=== PATIENT | male | born 1950 | race Caucasian/White ===

== ENCOUNTER 2018-06-28 12:45 | Observation (INO) | payer OTHER ==
[2018-06-28] MEDS ORDERED: NA CHLORIDE 0.9% 1,000 ML ONE (13:51)
[2018-06-28 14:33] LABS: Absolute Lymphocytes (CBC) 2.3 K/uL (0.7-4.9); Absolute Monocytes 1.1 K/uL (0.1-1.3); Absolute Neutrophil 5.7 K/uL (1.8-8.0); Eosinophils % 1.5 % (0-4.4); Hematocrit 48.1 % (39.6-49.0); Lymphocytes % 24.1 % (15.3-44.8); MCV 97.5 fL (80-100); MPV 10.3 fL (7.6-11.3); Monocytes % 12.1 % (3.3-12.3); RBC Red Blood Cell Count 4.93 M/uL (4.33-5.43)
[2018-06-28 14:45] LABS: Albumin 3.2 g/dL (3.4-5.0); Bilirubin Direct 0.2 mg/dL (0-0.2); Bilirubin Total 0.8 mg/dL (0.2-1.0); Protein, Total 6.3 g/dL (6.4-8.2)
--- NOTE | 2018-06-28 14:57 | RAD REPORT ---
EXAM DESCRIPTION: RAD - Chest Single View - 06/28/2018 2:41 pm CLINICAL HISTORY: Cough, abdominal distension COMPARISON: None. TECHNIQUE: AP portable chest image was obtained 1434 hours . FINDINGS: Lung volumes are low but otherwise clear of a focal process. Interstitial markings are mil dly prominent suspected to be baseline. Heart and vasculature are normal. No measurable pleural effus ion and no pneumothorax. No acute bony abnormality seen. No acute aortic findings suspected. IMPRESSION: Prominence of the interstitial markings favored to be baseline rather than interstitial edema or infiltrate. No mass, consolidation or failure finding.
--- NOTE | 2018-06-28 15:55 | RAD REPORT ---
EXAM DESCRIPTION: CT - Abdomen Pelvis W Contrast - 06/28/2018 3:31 pm CLINICAL HISTORY: Abdominal pain. Abdominal distention COMPARISON: None. TECHNIQUE: Computed axial tomography of the abdomen and pelvis was obtained. 100 cc Isovue-300 is ad ministered intravenously. Oral contrast was given. All CT scans are performed using dose optimization technique as appropriate and may include automated exposure control or mA/KV adjustment according to patient size. FINDINGS: The liver, spleen, pancreas, adrenals and right kidney appear unremarkable. 2.7 centimeter left renal cyst is seen Small bilateral hernias contain fat Small to moderate amount of ascites is present. Soft tissue nodules are present within the omentum. T he wall of a loop of small bowel within the anterior right abdomen is markedly thickened. Spondylolysis involves L5 IMPRESSION: Soft tissue nodules within the omentum suspicious for carcinomatosis. Small to moderate amount ascites is seen. Marked thickening of the wall of a loop of small bowel within the anterior right abdomen may indicate neoplasm
--- NOTE | 2018-06-28 16:37 | EDPHYS ---
Physician Documentation [facility] Name: Derek Yan Age: 68 yrs Sex: Male : 1950 Arrival Date: 06/28/2018 Time: 12:50 Bed 17 Private MD: Newton Iraehta T ED Physician Thierno Wilson HPI: 06/28 13:35 This 68 yrs old Male presents to ER via Ambulatory with complaints of bowel cp problem. 13:35 The patient presents with abdominal distention that is diffuse. cp 13:35 Onset: The symptoms/episode began/occurred 3 day(s) ago. cp 13:35 The symptoms do not radiate. Associated signs and symptoms: Pertinent positives: cp constipation, Pertinent negatives: anorexia, chest pain, diarrhea, dysuria, fever, palpitations, testicular pain, vomiting. The symptoms are described as dull. Historical: - Allergies: 13:16 No Known Allergies; aj1 - Home Meds: 13:16 Lisinopril Oral [Active]; Simvastatin Oral [Active]; Aspirin Oral [Active]; Claritin aj1 Oral [Active]; - PMHx: 13:16 Hypertension; Hyperlipidemia; aj1 - PSHx: 13:16 Hernia repair; aj1 - Immunization history:: Flu vaccine is not up to date. - Social history:: Smoking status: Patient/guardian denies using tobacco. - Ebola Screening: : Patient denies travel to an Ebola-affected area in the 21 days before illness onset. ROS: 13:40 Constitutional: Negative for body aches, chills, fever, poor PO intake. cp 13:40 Eyes: Negative for injury, pain, redness, and discharge. cp 13:40 ENT: Negative for drainage from ear(s), ear pain, sore throat, difficulty swallowing, cp difficulty handling secretions. 13:40 Cardiovascular: Negative for chest pain, edema, palpitations. 13:40 Respiratory: Negative for cough, shortness of breath, wheezing. 13:40 Abdomen/GI: Positive for constipation, abdominal distension, Negative for vomiting, diarrhea, black/tarry stool, rectal bleeding. 13:40 Back: Negative for radiated pain. 13:40 : Negative for urinary symptoms, testicular pain 13:40 Skin: Negative for cellulitis, rash. 13:40 Neuro: Negative for altered mental status, headache, syncope, near syncope, weakness. 13:40 All other systems are negative. Exam: 13:45 Constitutional: The patient appears in no acute distress, alert, awake, cp non-diaphoretic, non-toxic, well developed, well nourished, uncomfortable. 13:45 Head/Face: Normocephalic, atraumatic. cp 13:45 Eyes: Pupils equal round and reactive to light, extra-ocular motions intact. Lids and cp lashes normal. Conjunctiva and sclera are non-icteric and not injected. Cornea within normal limits. Periorbital areas with no swelling, redness, or edema. ENT: Nares patent. No nasal discharge, no septal abnormalities noted. Tympanic membranes are normal and external auditory canals are clear. Oropharynx with no redness, swelling, or masses, exudates, or evidence of obstruction, uvula midline. Mucous membranes moist. Chest/axilla: Normal chest wall appearance and motion. Nontender with no deformity. No lesions are appreciated. 13:45 Cardiovascular: Rate: normal, Rhythm: regular, Edema: is not appreciated, JVD: is not appreciated. 13:45 Respiratory: the patient does not display signs of respiratory distress, Respirations: normal, no use of accessory muscles, no retractions, no splinting, no tachypnea, labored breathing, is not present, Breath sounds: are clear throughout, no decreased breath sounds, no stridor, no wheezing. 13:45 Abdomen/GI: Inspection: distension, that is moderate, in the abdomen diffusely, Bowel cp sounds: active, all quadrants, Palpation: abdomen is soft and non-tender, in all quadrants, rebound tenderness, is not appreciated, voluntary guarding, is not appreciated, involuntary guarding, is not appreciated. 13:45 Back: CVA tenderness, is absent. 13:45 Skin: cellulitis, is not appreciated, no rash present. 13:45 Neuro: Orientation: to person, place \T\ time. Mentation: lucid, able to follow commands, Cerebellar function: is grossly normal, Motor: moves all fours, strength is normal, Sensation: no obvious gross deficits, Gait: is steady. Vital Signs: 13:16 BP 125 / 85; Pulse 92; Resp 18; Temp 97.8; Pulse Ox 97% on R/A; Weight 94.8 kg (R); aj1 Height 5 ft. 9 in. (175.26 cm) (R); Pain 0/10; 14:46 BP 134 / 78; Pulse 81; Resp 14; Temp 98.6; Pulse Ox 99% on R/A; Pain 2/10; ch 16:04 BP 120 / 66; Pulse 88; Resp 16; Pulse Ox 96% on R/A; Pain 0/10; em 17:00 BP 134 / 75; Pulse 92; Resp 18; Pulse Ox 97% on R/A; Pain 0/10; em 13:16 Body Mass Index 30.86 (94.80 kg, 175.26 cm) aj1 14:46 pt states it is not pain, more pressure ch MDM: 13:19 Patient medically screened. cp 14:00 Differential diagnosis: bowel obstruction, pancreatitis, ascites, liver failure, bowel cp carcinoma. 16:15 Data reviewed: vital signs, nurses notes, lab test result(s), radiologic studies, CT cp scan, plain films. 16:15 Test interpretation: by ED physician or midlevel provider: plain radiologic studies. 16:25 Physician consultation: Tomás Haywood MD was contacted at 16:25, regarding admission, to the medical/surgical unit. patient's condition. 06/28 13:30 Order name: Basic Metabolic Panel; Complete Time: 14:46 06/28 14:46 Interpretation: Normal except: NA 134; GLUC 72; BUN 25; GFR 75. 06/28 13:30 Order name: CBC with Diff; Complete Time: 14:46 06/28 16:10 Interpretation: Reviewed. 06/28 13:30 Order name: Creatinine for Radiology; Complete Time: 14:46 06/28 13:30 Order name: Hepatic Function; Complete Time: 14:46 06/28 14:47 Interpretation: Normal except: AST 54; TP 6.3; ALB 3.2; A/G 1.0. 06/28 13:30 Order name: Lipase; Complete Time: 14:46 06/28 16:45 Order name: CBC with Automated Diff EDMS 06/28 16:45 Order name: CBC with Automated Diff EDMS 06/28 16:45 Order name: CBC with Automated Diff EDMS 06/28 16:45 Order name: CBC with Automated Diff EDMS 06/28 16:45 Order name: Comprehensive Metabolic Panel EDMS 06/28 16:45 Order name: Comprehensive Metabolic Panel [facility] 06/28 16:45 Order name: Comprehensive Metabolic Panel [facility] 06/28 16:45 Order name: Comprehensive Metabolic Panel [facility] 06/28 16:45 Order name: Magnesium [facility] 06/28 13:30 Order name: IV Saline Lock; Complete Time: 14:25 06/28 13:30 Order name: Labs collected and sent; Complete Time: 14:25 06/28 13:30 Order name: Urine Dipstick-Ancillary (obtain specimen); Complete Time: 17:43 06/28 13:30 Order name: XRAY Chest (1 view); Complete Time: 16:08 06/28 13:30 Order name: CT Abd/Pelvis - W/Contrast: give oral contrast; Complete Time: 16:08 06/28 16:45 Order name: NPO [facility] 06/28 16:45 Order name: Magnesium [facility] 06/28 16:45 Order name: Phosphorus [facility] 06/28 16:45 Order name: Phosphorus [facility] 06/28 17:37 Order name: Urine Dipstick--Ancillary (enter results) em1 Administered Medications: 14:24 Drug: NS 0.9% 500 ml Route: IV; Rate: bolus; Site: right forearm; em 14:51 Follow up: IV Status: Completed infusion; IV Intake: 500ml 14:24 Drug: NS 0.9% 1000 ml Route: IV; Rate: 100 ml/hr; Site: right forearm; em 17:45 Follow up: IV Status: Infusion continued upon admission; IV Intake: 200ml em Disposition: 06/28/18 16:36 Hospitalization ordered by Tomás Haywood for Observation. Preliminary diagnosis is Ascites. - Bed requested for Telemetry/MedSurg (observation). - Status is Observation. em - Condition is Stable. - Problem is new. - Symptoms are unchanged. UTI on Admission? No Addendum: 07/01/2018 07:47 Co-signature as Attending Physician, Thierno Wilson MD. r n Signatures: Dispatcher [employer] Natasha Kinney RN RN aj1 Pierce Pascual, BROTH MIXER BROTH MIXER em Thierno Wilson MD MD rn Page, Corey, PA PA Era Willingham Christina RN Corrections: (The following items were deleted from the chart) 06/28 17:16 16:36 Hospitalization Ordered by Tomás Haywood MD for Observation. Preliminary diagnosis eb is Ascites. Bed requested for Telemetry/MedSurg (observation). Status is Observation. Condition is Stable. Problem is new. Symptoms are unchanged. UTI on Admission? No. cp 17:58 17:16 06/28/2018 16:36 Hospitalization Ordered by Tomás Haywood MD for Observation. em Preliminary diagnosis is Ascites. Bed requested for Telemetry/MedSurg (observation). Status is Observation. Condition is Stable. Problem is new. Symptoms are unchanged. UTI on Admission? No. eb 23:11 15:40 Constitutional: Negative for body aches, chills, fever, poor PO intake, cp cp 23:11 15:40 Eyes: Negative for injury, pain, redness, and discharge, cp cp
--- NOTE | 2018-06-28 16:37 | ER ---
Nurse's Notes [facility] Name: Derek Yan Age: 68 yrs Sex: Male : 1950 Arrival Date: 06/28/2018 Time: 12:50 Bed 17 Private MD: Newton Iraheta T Diagnosis: Ascites Presentation: 06/28 13:11 Presenting complaint: Patient states: His belly has been getting bigger for the past 3 aj1 days. He went to see his doctor today and he told him that he thinks he has a bowel obstruction and to come to the ER for evaluation. Denies pain. Reports constipation. Denies N/V. Transition of care: patient was not received from another setting of care. Onset of symptoms was June 25, 2018. Risk Assessment: Do you want to hurt yourself or someone else? Patient reports no desire to harm self or others. Initial Sepsis Screen: Does the patient meet any 2 criteria? No. Patient's initial sepsis screen is negative. Does the patient have a suspected source of infection? No. Patient's initial sepsis screen is negative. Care prior to arrival: None. 13:11 Method Of Arrival: Ambulatory aj1 13:11 Acuity: GHASSAN 3 aj1 Triage Assessment: 13:16 General: Appears in no apparent distress. uncomfortable, Behavior is calm, cooperative, aj1 appropriate for age. Pain: Denies pain. Neuro: Level of Consciousness is awake, alert, obeys commands. Cardiovascular: Patient's skin is warm and dry. Respiratory: Airway is patent Respiratory effort is even, unlabored, Respiratory pattern is regular, symmetrical. Historical: - Allergies: 13:16 No Known Allergies; aj1 - Home Meds: 13:16 Lisinopril Oral [Active]; Simvastatin Oral [Active]; Aspirin Oral [Active]; Claritin aj1 Oral [Active]; - PMHx: 13:16 Hypertension; Hyperlipidemia; aj1 - PSHx: 13:16 Hernia repair; aj1 - Immunization history:: Flu vaccine is not up to date. - Social history:: Smoking status: Patient/guardian denies using tobacco. - Ebola Screening: : Patient denies travel to an Ebola-affected area in the 21 days before illness onset. Screenin:46 Abuse screen: Denies threats or abuse. Denies injuries from another. Nutritional ch screening: No deficits noted. Tuberculosis screening: No symptoms or risk factors identified. Fall Risk None identified. Assessment: 14:46 General: Appears in no apparent distress. comfortable, Behavior is calm, cooperative, ch appropriate for age. Pain: Complains of pain in abdomen Pain currently is 2 out of 10 on a pain scale. Pain began gradually. Neuro: No deficits noted. Cardiovascular: No deficits noted. Respiratory: Airway is patent Trachea midline Respiratory effort is even, unlabored, Breath sounds are clear bilaterally. GI: Abdomen is round abdomen is slightly firm and bloated, but not ridged. Bowel sounds present X 4 quads. Abd is non tender X 4 quads pt abdomen is slightly firm, but not ridged. pt denies pain with palpation, denies nvd. : No signs and/or symptoms were reported regarding the genitourinary system. Derm: Skin is pink, warm \T\ dry. 15:00 Reassessment: I agree with previous assessment. hb 16:03 Reassessment: Patient appears in no apparent distress at this time. Patient and/or em family updated on plan of care and expected duration. Pain level reassessed. Patient is alert, oriented x 3, equal unlabored respirations, skin warm/dry/pink. 17:00 Reassessment: Patient appears in no apparent distress at this time. Patient and/or em family updated on plan of care and expected duration. Pain level reassessed. Patient is alert, oriented x 3, equal unlabored respirations, skin warm/dry/pink. 17:35 Reassessment: Patient appears in no apparent distress at this time. Patient and/or em family updated on plan of care and expected duration. Pain level reassessed. Patient is alert, oriented x 3, equal unlabored respirations, skin warm/dry/pink. Dr. Haywood at bedside discussing POC. Vital Signs: 13:16 BP 125 / 85; Pulse 92; Resp 18; Temp 97.8; Pulse Ox 97% on R/A; Weight 94.8 kg (R); aj1 Height 5 ft. 9 in. (175.26 cm) (R); Pain 0/10; 14:46 BP 134 / 78; Pulse 81; Resp 14; Temp 98.6; Pulse Ox 99% on R/A; Pain 2/10; ch 16:04 BP 120 / 66; Pulse 88; Resp 16; Pulse Ox 96% on R/A; Pain 0/10; em 17:00 BP 134 / 75; Pulse 92; Resp 18; Pulse Ox 97% on R/A; Pain 0/10; em 13:16 Body Mass Index 30.86 (94.80 kg, 175.26 cm) aj1 14:46 pt states it is not pain, more pressure ch ED Course: 12:50 Patient arrived in ED. sb2 12:50 Newton Iraheta MD is Private Physician. sb2 13:15 Triage completed. aj1 13:16 Arm band placed on Patient placed in an exam room. aj1 13:19 Jason Jarquin PA is PHCP. cp 13:19 Thierno Wilson MD is Attending Physician. cp 13:23 Pierce Pascual LVN is Primary Nurse. em 13:40 No apparent distress. Resting quietly. ch 13:40 Patient has correct armband on for positive identification. Placed in gown. Bed in low ch position. Call light in reach. Side rails up X2. Pulse ox on. NIBP on. Door closed. Noise minimized. Lights dimmed. Warm blanket given. 13:40 No provider procedures requiring assistance completed. Inserted saline lock: 20 gauge ch in right antecubital area, using aseptic technique. Blood collected. 14:37 X-ray completed. Portable x-ray completed in exam room. Patient tolerated procedure ls3 well. 14:41 XRAY Chest (1 view) In Process Unspecified. EDMS 14:51 No apparent distress. Resting quietly. ch 15:31 CT Abd/Pelvis - W/Contrast: give oral contrast In Process Unspecified. EDMS 16:35 Tomás Haywood MD is Hospitalizing Provider. cp 17:44 Patient admitted, IV remains in place. em Administered Medications: 14:24 Drug: NS 0.9% 500 ml Route: IV; Rate: bolus; Site: right forearm; em 14:51 Follow up: IV Status: Completed infusion; IV Intake: 500ml ch 14:24 Drug: NS 0.9% 1000 ml Route: IV; Rate: 100 ml/hr; Site: right forearm; em 17:45 Follow up: IV Status: Infusion continued upon admission; IV Intake: 200ml em Intake: 14:51 IV: 500ml; Total: 500ml. ch 17:45 IV: 200ml; Total: 700ml. em Outcome: 16:36 Decision to Hospitalize by Provider. cp 17:44 Admitted to Med/surg accompanied by tech, family with patient, via wheelchair, room em 413, with chart, Report called to KIMBERLY Smith 17:44 Condition: good 17:44 Instructed on the need for admit, Demonstrated understanding of instructions. 17:58 Patient left the ED. em Signatures: Dispatcher [employer] EDMS Sandy Salcido RN RN Natasha Sanders RN RN aj1 Pierce Pascual, FABRICATOR ARTIFICIAL BREAST FABRICATOR ARTIFICIAL BREAST em Jason Jarquin, PA PA cp Tiffanie Bonilla RN RN Gabriela Cruz sb2 Huang Rodriguez3
[2018-06-28] MEDS ORDERED: ACETAMINOPHEN 650MG/RECT SUPP PR PRN (16:41)
[2018-06-28] MEDS ORDERED: ONDANSETRON 4 MG/2 ML VIAL IV PRN (16:41)
[2018-06-28 18:27] VITALS: BMI 29.8
[2018-06-28 18:38] LABS: Urine Blood NEGATIVE (NEG); Urine Glucose NEGATIVE (NEG); Urine Protein NEGATIVE (NEG); Urine Specific Gravity 1.015 (1.005-1.030)
[2018-06-28] MEDS ORDERED: MORPHINE 2 MG/ML SYR IV PRN (18:39)
[2018-06-28] MEDS: ENOXAPARIN 40 MG/0.4 ML SQ SCH (18:44)
[2018-06-28] MEDS: D5.45NS W/KCL 20MEQ 1,000 ML IV SCH (18:44)
[2018-06-28] MEDS: METRONIDAZOLE 500mg IVPB 500 MG/100 ML BAG IV SCH (18:44)
[2018-06-28] MEDS: CIPROFLOXACIN 400mg IV 400 MG/200 ML BAG IV SCH (20:04)
[2018-06-28] MEDS ORDERED: ATORVASTATIN 40 MG TAB PO SCH (21:00)
[2018-06-29] MEDS: METRONIDAZOLE 500mg IVPB 500 MG/100 ML BAG IV SCH ×2 (01:00→09:42)
[2018-06-29] MEDS: D5.45NS W/KCL 20MEQ 1,000 ML IV SCH ×2 (02:09→13:00)
--- NOTE | 2018-06-29 03:31 | HP ---
Date of Admission: 06/28/2018 Primary Care Physician: Dr. Iraheta. Chief Complaint: Abdominal distention. Code Status: Full. History Of Present Illness: The patient is a 68-year-old male with past medical history of hypertens ion, hyperlipidemia, seasonal allergies, comes in with 3 to 5 days history of abdominal distention. The patient does report some mild pain in his abdomen along with some nausea, but no vomiting. The p atient does report some dark stools. The patient's symptoms are constant, moderate, progressively wo rsening. No alleviating or aggravating factors. The patient also reports associated constipation. The patient came into the ER for further evaluation. Upon arrival, his vital signs were stable. He was afebrile. His lab workup showed normal white blood cell count. CT scan of the abdomen, however, did reveal soft tissue nodules within the omentum, suspicious for carcinomatosis, showed some ascite s, thickening of the wall of the loop of small bowel within the anterior right abdomen indicating pos sible neoplasm. The patient was referred for admission. When seen in the ER, he was awake, alert, o riented x3, in some mild distress. Past Medical History: Hypertension, hyperlipidemia. Surgical History: Hernia repair. Allergies: NO KNOWN DRUG ALLERGIES. Medications: Lisinopril, simvastatin, aspirin, Claritin. Social History: The patient used to smoke heavily, however, quit 35 years ago. Used to drink heavil y in the past, however, has stopped drinking for the past 7 years. Family History: The patient's mother had COPD. Brother had heart attack at the age of 44. Father a lso has heart disease with stents. Review of Systems: An 11-point system reviewed, negative except as per HPI. Physical Examination: Vital Signs: Blood pressure 125/85, pulse 92, respirations 18, temperature 97.8, O2 97% on room air. General: Awake, alert, oriented x3, in some mild distress. Elderly male, somewhat ill appearing. HEENT: Normocephalic, atraumatic. PERRLA. EOMI. Dry mucous membranes. Oropharynx is clear. Conj unctivae anicteric. Neck: Supple. No JVD. Trachea midline. CV: S1, S2. Regular rate and rhythm. Peripheral pulses are present. No murmurs. Respiratory: Moving air well bilaterally. No wheezing or stridor. No use of accessory muscles. Gastrointestinal: Abdomen is distended. Mild ascites. No tenderness. No guarding or rigidity. Miles wel sounds are positive. Extremities: No clubbing, cyanosis, or edema. No calf tenderness. Neuro: Cranial nerves 2 through 12 intact grossly. No focal neurological deficit. Speech is normal . Strength is 5/5 bilateral upper and lower extremities. Sensation intact to light touch. Skin: No rashes. Normal skin turgor. Psych: Mood is okay. Affect is flat. Insight and judgment are good. Laboratory Data: Sodium 134, potassium 4, chloride 104, CO2 21, BUN 25, creatinine 1, glucose 72, ca lcium 8.5, AST 54, ALT 36, albumin 3.2, lipase 90. WBC 9.4, H and H 16.8 and 48.1, platelets 248. U A is pending. Imaging Studies: CT scan of the abdomen and pelvis with contrast shows soft tissue nodules within th e omentum suspicious for carcinomatosis, small to moderate amount of ascites seen. Marked thickening of the wall of the loop of small bowel within the anterior right abdomen may indicate neoplasm, spon dylosis involves L5, 2.7 cm left renal cyst. Chest x-ray, personally reviewed, shows prominence of t he interstitial markings, favored to be baseline rather than interstitial edema or infiltrates. No m ass, consolidative findings. Assessment And Plan: A 68-year-old male with: 1.Abdominal distention, pain likely secondary to carcinomatosis. 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 Dr. Dodson with Surgery has been consulte d. We will obtain cancer tumor markers and the patient will likely need upper and lower endoscopy pl anned for scope on Sunday. We will start on clear liquid diet and advance as tolerated. We will pro vide IV pain medications. 3.Essential hypertension. We will resume home medications as appropriate. 4.Mixed hyperlipidemia. Continue statin. 5.2.5 cm renal cyst, benign. 6.Spondylosis of L5. No obvious decreased range of motion or pain. 7.Overweight, BMI 29.8. 8.Hyponatremia. We will continue to monitor. Continue with IV fluids and replete. Plan: Admit the patient to Med-Surg, place as inpatient. Overall, prognosis is very poor. SA/MODL Voice ID: [id number]
[2018-06-29 05:37] LABS: Absolute Lymphocytes (CBC) 2.2 K/uL (0.7-4.9); Absolute Monocytes 1.2 K/uL (0.1-1.3); Absolute Neutrophil 5.5 K/uL (1.8-8.0); Basophils % 0.6 % (0-1.3); Eosinophils % 2.3 % (0-4.4); Hematocrit 45.6 % (39.6-49.0); MCH 34.6 pg (27.0-35.0); MCV 98.4 fL (80-100); MPV 10.3 fL (7.6-11.3); Monocytes % 12.6 % (3.3-12.3); RBC Red Blood Cell Count 4.63 M/uL (4.33-5.43)
[2018-06-29 05:48] LABS: Albumin 2.8 g/dL (3.4-5.0); Bilirubin Total 0.7 mg/dL (0.2-1.0); Magnesium 1.7 mg/dL (1.8-2.4); Phosphorus 3.3 mg/dL (2.5-4.9); Potassium 4.4 mmol/L (3.5-5.1); Protein, Total 5.6 g/dL (6.4-8.2)
[2018-06-29] MEDS ORDERED: MAGNESIUM SULFATE 1 gm IVPB 1 GM/100 ML BAG IV ONE (05:51)
[2018-06-29] MEDS ORDERED: INFLUENZA VACCINE (for 3y+) 0.5 ML DOSE IMVAC ONE (08:00)
[2018-06-29 08:52] VITALS: O2SAT 96
[2018-06-29] MEDS ORDERED: LORATADINE 10 MG TAB PO SCH (09:00)
[2018-06-29] MEDS ORDERED: HOME MED 1 EA UNK (Simvastatin [Simvastatin] 80 MG) PO SCH (09:00)
[2018-06-29] MEDS ORDERED: LISINOPRIL 10 MG TAB PO SCH (09:00)
[2018-06-29] MEDS: ENOXAPARIN 40 MG/0.4 ML SQ SCH (09:39)
[2018-06-29] MEDS: CIPROFLOXACIN 400mg IV 400 MG/200 ML BAG IV SCH (10:07)
[2018-06-29 13:28] VITALS: BP 145/81; TEMP 97
--- NOTE | 2018-06-29 15:01 | CON ---
Date of Consultation: 06/29/2018 Brief History Of Present Illness: The patient is a 68-year-old male with past medical hist ory of hypertension, hyperlipidemia, seasonal allergies, comes in with 3 to 5 days of abdominal diste ntion. He states he has felt generally miserable, uncomfortable from an abdominal standpoint with pr essure and distention. He has had no nausea, vomiting. He has had decreased p.o. intake because of the above stated complaints. He has had no weight changes as of late, but feels as if he has been ap pearing larger due to his enlarging abdominal girth. There are no other aggravating or alleviating f actors. There are no food associations. He reports occasional constipation. He came to the emergen cy room from Dr. Iraheta's office with the concern for gastrointestinal problem. Past Medical History: Hypertension, hyperlipidemia. Past Surgical History: Hernia repair. Allergies: NO KNOWN DRUG ALLERGIES. Medications: Include lisinopril, simvastatin, aspirin, Claritin. Social History: He had a smoking history, but quit tobacco 35 years ago. He used to drink somewhat in the past predominantly on weekends, but stopped drinking over 7 years ago. 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 Family History: His mother had COPD. Brother had heart attack at age 44. Father had heart disease with stents. Review of Systems: A 10-point review of systems other than HPI, denies. Last colonoscopy was approximately 2 years ago and showed multiple polyps. Physical Examination: Vital Signs: His BMI is 29.9. His vital signs were a temperature of 98.3, pulse is 84, respiratory rate 24, blood pressure 106/77, oxygen saturation 96% on room air. General: He is awake, alert, and oriented. Psychiatric: He is appropriate and conversive. HEENT: He is normocephalic. Sclerae icteric. Mucous membranes are moist. Oropharynx clear. Neck: Supple. No JVD. Chest: Clear to excursion. Cardiovascular: Regular rate and rhythm. Pulmonary: Clear to auscultation bilaterally. Abdomen: Soft with global distention. It is somewhat firm globally. There are no peritoneal signs. No abdominal pain on examination. No hernias appreciated. He does have some fluidic component to his abdominal exam with agitation. No palpable masses, however. Extremities: No clubbing, cyanosis, or edema. Skin: Warm and dry. Laboratory Data: Reveals a white blood count of 9.1, hemoglobin 16.0, hematocrit 45.6, platelet coun t is 225. His sodium 137, potassium 4.4, chloride 104, carbon dioxide 25, BUN 19, creatinine 1.0, gl ucose is 88, phosphorus is 3.3, magnesium 1.7, AST is 51, ALT is 32, alkaline phosphatase is 69, lipa se is 90. AFP, CEA were all drawn. CEA is 3.6. A CA-99, a CA-125 sent as well. UA was essentially negative. He had a CT scan performed of the abdomen and pelvis, which was officially read as soft t issue nodules within the omentum suspicious for carcinomatosis. Small to moderate amount of ascites was seen. Marked thickening of the wall of loops of small bowel within the anterior right abdomen ma y indicate neoplasm. He has small bilateral hernias containing fat. Assessment And Plan: This is a 68-year-old male who comes in with possible carcinomatosis of the abd omen and ascites. 1.The patient has been hydrated appropriately. 2.Start p.o. intake. 3.I recommend a carcinomatosis workup to include endoscopy as well as possible biopsy of 1 of these nodules if achievable. Additionally, patient will likely require additional imaging of the chest wit h thin slice to see if mesothelioma is a possible etiology. I have explained the risks, benefits, an d alternatives of the above stated plan. The patient agrees to proceed as indicated. He will likely follow up with me as an outpatient, as he would like to go home, and states the symptoms have not ch anged since his admission. He is able to tolerate diet, he states, with Boost or Ensure to keep adeq uately hydrated as well as nutritional goals being met. He will follow up with me for continued workup as an outpatient. Thank you for this interesting consult. GRACE/UBALDO Voice ID: [id number] Report ID: [id number]
--- NOTE | 2018-06-30 15:49 | DS ---
Date of Discharge: 06/29/2018 Consultants: Dr. Dodson with General Surgery. Procedure: None. Admitting Diagnoses: 1.Abdominal distention and pain. 2.Carcinomatosis. 3.Essential hypertension. 4.Mixed hyperlipidemia. 5.Renal cyst benign. 6.Spondylosis, lumbar spine. 7.Overweight, BMI 29.8. 8.Hyponatremia. Hospital Course: The patient is a 68-year-old male who had been having abdominal distention and came to the ER for further evaluation. He had pain and some constipation along with dark stool. The pat ient's workup revealed soft tissue nodules within the omentum, which were suspicious for carcinomatos is. He had some ascites and changes, which were consistent with possible neoplasm. The patient was admitted for further evaluation. He did have some dehydration due to not being able to tolerate any p.o. intake. He was hydrated. The patient's pain was controlled. He felt better. He continued to have abdominal distention. Dr. Dodson, General Surgery, was consulted for workup regarding the carc inomatosis. He recommended endoscopy and colonoscopy to obtain biopsies of the nodules. However, th e patient did not wish to stay for workup because his symptoms had improved and was tolerating a diet . He would rather go home and continue the workup as an outpatient. This was acceptable to both par ties including the patient and Dr. Dodson as well as myself. The patient understands that this is m ost likely neoplastic and malignant, which could spread. He will need further workup including scope s, CT scans for staging, and biopsies. He understands and wants to follow up on Sunday with Dr. Kavita sainz after bowel prep on Sunday. The patient's pain improved. His white blood cell count remained n ormal. His sodium level normalized. The patient did have some tumor markers obtained, which are pen ding at this time. He will need to follow up with his primary care physician and surgeon to go over these results. His CEA did come back negative. The patient was then discharged home in a stable con dition. Activity: As tolerated. Medications: As per medication reconciliation list. Followup: Follow up with primary care physician in 2 to 3 days. Follow up with surgeon, Dr. Dodson , next week for endoscopy. Return to ER for worsening condition. Physical Examination: General: Awake, alert, oriented x3. No acute distress. CV: S1, S2. No murmurs. Respiratory: Moving air well bilaterally. Abdomen: Distended, soft, nontender. Positive bowel sounds. Extremities: No clubbing, cyanosis, edema. Neuro: Nonfocal. SA/MODL Voice ID: [id number] Report ID: [id number]
== END 2018-06-29 14:30 | disposition home or self-care (01) ==
LOC: ER 12:45 → ERHOLD 16:42 → INTOOBSV 16:42 → 4TH 17:42
PROVIDERS: ADMIT Family Medicine; ATTEND Family Medicine
DX: R14.0 Abdominal distension (gaseous) (principal); C80.0 Disseminated malignant neoplasm, unspecified; I10 Essential (primary) hypertension; E78.2 Mixed hyperlipidemia; E87.1 Hypo-osmolality and hyponatremia; M47.9 Spondylosis, unspecified; N28.1 Cyst of kidney, acquired; Z87.891 Personal history of nicotine dependence
CPT/HCPCS: 36415 ×2; 71045; 74177; 80048; 80053; 80076; 81003; 82105; 82378; 83690; 83735; 84100; 85025 ×2; 86301; 86304; 94760 ×4; 96360; 96361; 99285; G0378 ×2; J0744 ×2; J1650 ×2; J3475; J7030; Q9967; 81050; 83497

== ENCOUNTER 2018-07-02 09:57 | Day surgery (SDC) | payer OTHER ==
[2018-07-02] MEDS ORDERED: PROPOFOL 200 MG/20 ML VIAL IV ONE (10:59)
[2018-07-02] MEDS ORDERED: MIDAZOLAM HCL 2 MG/2 ML INJ ONE (11:04)
[2018-07-02] MEDS ORDERED: FENTANYL CITR 100 MCG/2 ML ONE (11:32)
[2018-07-02] MEDS ORDERED: Phenylephrine HCl 10 MG/ML 1 ML VIAL ONE (11:32)
[2018-07-02] MEDS ORDERED: NS 0.9% VIAL 10 ML ONE (11:32)
[2018-07-02] MEDS ORDERED: Ringers Lactate 1,000 ML IV ONE (11:57)
--- NOTE | 2018-07-02 12:32 | ENDO RPT ---
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 pylori MEDICATIONS: Per Anesthesia. TOPICAL ANESTHETIC: none CONSENT: The patient understands the risks and benefits of the procedure and understands that these risks include, but are not limited to: sedation, allergic reaction, infection, perforation and/or bleeding. Alternative means of evaluation and treatment include, among others: physical exam, x-rays, and/or surgical intervention. The patient elects to proceed with this endoscopic procedure. DESCRIPTION OF PROCEDURE: During intra-op preparation period all mechanical medical equipment was checked for proper function. Hand hygiene and appropriate measures for infection prevention was taken. Procedure, possible complications, and alternatives including but not limited to the possibility of bleeding, perforation, tear, infection, sepsis, need for surgery, need for blood transfusion, and anesthesia related complications were explained to the patient. After the risks, benefits and alternatives of the procedure were thoroughly explained, Informed consent was verified, confirmed and timeout was successfully executed by the treatment team. The patient was placed in the left lateral position. The patient was anesthetized with topical anesthesia. Through the anesthetized oropharyngeal area, the scope was passed without any difficulty. The [id number] ([id number]) endoscope was introduced through the mouth and advanced to the second portion of the duodenum. Retroflexed views revealed a small hiatal hernia. The gastroscope was then slowly withdrawn and removed. Multiple ulcers were found in the entire stomach. A biopsy for H. pylori was taken. Multiple biopsies were obtained and sent to pathology. Multiple ulcers were found in the bulb and descending duodenum. A biopsy for H. pylori was taken. Multiple biopsies were obtained and sent to pathology. Erythema was found Nodular mucosa was found in the gastroesophageal junction. Multiple biopsies were obtained and sent to pathology. ADVERSE EVENTS: There were no complications. IMPRESSIONS: Multiple ulcers were found in the total stomach RECOMMENDATIONS: 1. acid suppression therapy 2. anti-reflux regimen 3. await biopsy results 4. follow-up: office 2 week(s) 5. avoid NSAIDS 6. follow-up of helicobacter pylori status, treat if indicated REPEAT EXAM: Karl Dodson DR eSigned: Karl Dodson DR 07/02/2018 12:31 PM cc: CPT CODES: ICD9 CODES: PATIENT NAME: Yan Derek FrancesDaniel MR#: [id number]
--- NOTE | 2018-07-02 12:34 | ENDO RPT ---
[address], [address] COLONOSCOPY PROCEDURE REPORT EXAM DATE: 07/02/2018 PATIENT NAME: Derek Yan MR #: [id number] BIRTHDATE: 1950 ATTENDING: Karl Dodson DR STATUS: outpatient VALUER: Yeni Fritz RN and Marco Burnette [facility] INDICATIONS: The patient is a 68 yr old Male here for a colonoscopy due to carcinomatosis - unknown primary PROCEDURE PERFORMED: Screening Colonoscopy MEDICATIONS: Per Anesthesia. ESTIMATED BLOOD LOSS: None CONSENT: The patient understands the risks and benefits of the procedure and understands that these risks include, but are not limited to: sedation, allergic reaction, infection, perforation and/or bleeding. Alternative means of evaluation and treatment include, among others: physical exam, x-rays, and/or surgical intervention. The patient elects to proceed with this endoscopic procedure. DESCRIPTION OF PROCEDURE: During intra-op preparation period all mechanical medical equipment was checked for proper function. Hand hygiene and appropriate measures for infection prevention was taken. Procedure, possible complications, alternatives including, but not limited to possibility of bleeding, perforation, tear, infection, sepsis, need for surgery, need for blood transfusion, were explained to the patient. After the risks, benefits and alternatives of the procedure were thoroughly explained, Informed consent was verified, confirmed and timeout was successfully executed by the treatment team. The patient was placed in the left lateral position. A digital rectal exam was performed and revealed an enlarged prostate. After appropriate level of anesthesia, the scope was passed. The EC-[id number] ([id number]) and Pentax [id number] ([id number]) endoscope was introduced through the anus and advanced to the hepatic flexure. The quality of the prep was poor. The instrument was then slowly withdrawn as the colon was fully examined. Scope withdrawal time was 10 minutes. COLON FINDINGS: The entire colon could not be visualized, the colon was only visualized to the ileocecal valve, however the cecum was not visualized to spite using 2 different scopes, multiple attempts with repositioning patient, abdominal palpation. The colon mucosa was otherwise normal. Retroflexed views revealed no abnormalities. The scope was then completely withdrawn from the patient and the procedure terminated. ADVERSE EVENTS: There were no complications. IMPRESSIONS: The colon mucosa was otherwise normal RECOMMENDATIONS: 1. await biopsy results 2. fiber rich diet 3. avoid NSAIDS for 2 weeks 4. avoid NSAIDS 5. follow-up: office 2 week(s) RECALL: Karl Dodson DR eSigned: Karl Dodson DR 07/02/2018 12:34 PM cc: CPT CODES: ICD9 CODES: PATIENT NAME: Derek Yan MR#: [id number]
[2018-07-02] MEDS ORDERED: ONDANSETRON 4 MG/2 ML VIAL ONE (12:43)
[2018-07-02 13:48] VITALS: TEMP 97.2
[2018-07-02 13:51] VITALS: BP 118/67; O2SAT 98
== END 2018-07-02 13:25 | disposition home or self-care (01) ==
LOC: OR 09:57
PROVIDERS: ATTEND Surgery
PROC: 0DJD8ZZ Inspection of Lower Intestinal Tract, Via Natural or Artificial Opening Endoscopic (ICD-10-PCS; principal; 2018-07-02 11:00)
DX: K25.9 Gastric ulcer, unspecified as acute or chronic, without hemorrhage or perforation (principal); K26.9 Duodenal ulcer, unspecified as acute or chronic, without hemorrhage or perforation; K21.0 Gastro-esophageal reflux disease with esophagitis; K29.50 Unspecified chronic gastritis without bleeding; K29.80 Duodenitis without bleeding; K44.9 Diaphragmatic hernia without obstruction or gangrene; C78.6 Secondary malignant neoplasm of retroperitoneum and peritoneum; I10 Essential (primary) hypertension; E78.5 Hyperlipidemia, unspecified; Z87.891 Personal history of nicotine dependence; Z83.79 Family history of other diseases of the digestive system; Z82.49 Family history of ischemic heart disease and other diseases of the circulatory system
CPT/HCPCS: 45378; 88305; 88312 ×2; 88313; J2250; J2370; J2405; J2704; J3010